=== PATIENT | female | born 1975 | race Caucasian/White ===

== ENCOUNTER 2018-08-30 08:51 | Day surgery (SDC) | payer BC ==
[~2018-08-30 08:51] MED LIST: ALBU1.25 NEB; ALBU8.5H6 INH; ALPR1TAB6 PO; ATOR40TA59 PO; BENZ-8 PO; CHOL500016 PO; DEXT20TA2 PO; FLUC100T4 PO; FLUT10.6 IH; HYDROmorphone 2 MG/ML VIAL IV PRN; LIDOCAINE 1% PF 2 ML VIAL. ID PRN; LOSA25TA54 PO; METF500T16 PO; MONT10TA49 PO; MORPHINE SULFATE 2 MG/ML VIAL. IV PRN; OMEP40CA5 PO; PROP20TA PO; RANI150T2 PO; SIMV20TA3 PO
[2018-08-30] MEDS ORDERED: AMLO10TA8 PO (09:40)
[2018-08-30] MEDS ORDERED: PRED20TA PO (09:55)
[2018-08-30] MEDS: INSULIN LISPRO 100 UNIT/ML 3ML VIAL for OP,RR ONLY. SQ PRN ×2 (10:00→14:22)
[2018-08-30] MEDS: IV RINGERS,LACTATED 1000ML 1,000 ML IV SCH ×2 (10:00→14:24)
[2018-08-30] MEDS ORDERED: SCOPOLAMINE 1.5MG PATCH. TD ONE ×2 (10:02→10:15)
[2018-08-30] MEDS ORDERED: PROPOFOL 20 ML IV ONE (10:13)
[2018-08-30] MEDS ORDERED: LIDOCAINE 2% PF 5 ML VIAL. ONE (10:13)
[2018-08-30] MEDS ORDERED: FAMOTIDINE 20 MG/2 ML VIAL ONE (10:13)
[2018-08-30] MEDS ORDERED: DEXAMETHASONE SOD PHOS 4 MG/ML VIAL ONE (10:13)
[2018-08-30] MEDS ORDERED: ONDANSETRON PF 4 MG/2 ML VIAL. ONE (10:13)
[2018-08-30] MEDS ORDERED: fentaNYL PF VIAL 100 MCG/2 ML VIAL ONE ×2 (10:15→14:10)
[2018-08-30] MEDS ORDERED: OXYMETAZOLINE 0.05% NASAL SPRAY 30ML BOTTLE. NS ONE (11:38)
[2018-08-30] MEDS ORDERED: LIDOCAINE 1%/EPI 1:100,000 20 ML VIAL. ONE (12:29)
[2018-08-30] MEDS ORDERED: GELATIN SPONGE SIZE 12-7MM SPONGE. ONE (12:32)
[2018-08-30] MEDS ORDERED: CIPROFLOXACIN 0.3% OPHTH SOLUTION 5ML BOTTLE. AS ONE (13:00)
[2018-08-30] MEDS ORDERED: SEVOFLURANE 61 TO 120 MINUTES. IH ONE (13:46)
[2018-08-30] MEDS ORDERED: MUPIROCIN 2 % NASAL OINTMENT 22GM TUBE. TP ONE (13:55)
[2018-08-30] MEDS ORDERED: fentaNYL PF VIAL 100 MCG/2 ML VIAL IV PRN (14:15)
[2018-08-30] MEDS: fentaNYL PF VIAL 100 MCG/2 ML VIAL IV PRN ×2 (14:25→14:52)
--- NOTE | 2018-08-30 14:27 | PDOC4 ---
IMMEDIATE POST OP NOTE Date: Aug 30, 2018 Pre-Op Diagnosis chronic bilateral eustachian tube dysfunction, foreign body left middle ear Post-Op Diagnosis same as above Procedure Performed bilateral nasal endoscopy with bilateral eustachian tube dilation, left myringotomy with removal of middle ear foreign body and left paper patch myringoplasty Surgeon Dr. Jazmyn Rosa Pot Operator none Anesthesiologist Dr. Joel Ramirez Anesthesia Type: General Blood Loss <5mL Specimens Obtained none Findings 1. Inflammation around torus tubaris (left greater than right) 2. T-tube within left middle ear in superior-anterior middle ear with surrounding mucoid discharge 3. Significant myringosclerosis of left tympanic membrane Complications none Operative Note #[id number] JAZMYN ROSA MD Aug 30, 2018 14:27
[2018-08-30] MEDS ORDERED: OXYC1TAB15 PO (14:39)
[2018-08-30] MEDS ORDERED: oxyCODONE/APAP 5/325 1 TAB TABLET PO ONE (14:45)
--- NOTE | 2018-08-30 14:52 | OP ---
DATE OF SURGERY: 08/30/2018 PREOPERATIVE DIAGNOSES: Chronic bilateral eustachian tube dysfunction and foreign body within the left middle ear. POSTOPERATIVE DIAGNOSES: Chronic bilateral eustachian tube dysfunction and foreign body within the left middle ear. PROCEDURE PERFORMED: Bilateral nasal endoscopy with bilateral eustachian tube dilation, left myringotomy with removal of left middle ear foreign body and left paper patch myringoplasty. SURGEON: Jazmyn Rosa MD ANESTHESIA: General endotracheal anesthesia. ANESTHESIOLOGIST: Joel Ramirez MD ESTIMATED BLOOD LOSS: Less than 5 mL. INDICATIONS FOR SURGERY: The patient is a 42-year-old female with a longstanding history of chronic bilateral eustachian tube dysfunction for which the patient has undergone multiple tubes in the past, most recently had T-tube placed in 2016 on the left side. In 2018, the patient noted recurrent ear fullness and pain and was found on examination to have the T-tube had displaced into the middle ear. The patient has been living with this for over a year and the pain is now worse in that she desires to have surgical removal of the foreign body. The decision was made for the patient to undergo the above procedure after risks, benefits, and alternatives of surgery were thoroughly discussed with the patient and informed consent was obtained. INTRAOPERATIVE FINDINGS: 1. Inflammation around the mucosa of the medial torus tubarius bilaterally, the left side greater than the right. 2. T-tube within the left middle ear located in the superior anterior middle ear with surrounding mucoid discharge. 3. Significant myringosclerosis of the tympanic membrane with a monomeric aspect of the tympanic membrane superiorly anteriorly. DESCRIPTION OF THE PROCEDURE: The patient was brought back to the operating room per Anesthesia and a laryngeal mask airway was secured in the standard fashion. Afrin-soaked pledgets were then inserted into the patient's nasal cavity and the patient was prepped and draped in standard fashion. The Afrin-soaked pledgets were removed. A 30-degree scope was used to visualize the patient's right nasal cavity and right nasopharynx. I visualized the posterior nasopharynx and the eustachian tube orifice. The patient had mild inflammatory tissue on the medial aspect of the torus tubarius. I used the Entellus low profile probe bent to the eustachian tube configuration. This was gently placed within the eustachian tube orifice. Once I was to the 2 cm jose, I placed the balloon over the probe and insufflated the balloon to 12 atmospheres of pressure for 2 minutes. The balloon was then deflated and the balloon and probe were removed from the eustachian tube orifice, which had a normal appearance at the end of the case without any obvious trauma. My attention was then taken to the left nasal cavity. In similar fashion, I used a 30-degree scope to visualize the posterior nasopharynx. On this side, the patient had significant inflammatory tissue around the medial and superior aspect of the torus tubarius. The suction Bovie electrocautery was used to remove this inflammatory tissue that was extending off of the torus tubarius taking care to not harm the mucosa surrounding the eustachian tube orifice. I then placed the Entellus low profile probe again bent to the eustachian tube configuration within the eustachian tube orifice to the 2 cm jose. The balloon was then placed over the probe and insufflated to 12 atmospheres of pressure for 2 minutes. The balloon and probe were subsequently removed with no obvious trauma to the eustachian tube. Afrin-soaked pledgets were again inserted into the nasal cavity for several minutes for hemostasis and subsequently removed. The left ear was then prepped and draped in a standard fashion. Using the ear microscope, I thoroughly irrigated the external auditory canal. I visualized the tympanic membrane, which had no obvious perforation. There was significant myringosclerosis surrounding the majority of the tympanic membrane with only slight area of monomeric tympanic membrane in the superior anterior region. Through this area of monomeric tympanic membrane I could see a blue of the T-tube that had dislodged into the middle ear. A small myringotomy was made in the superior anterior tympanic membrane overlying this T-tube. I then used a Chris pick to carefully elevate the T-tube to a location where it could be removed with an alligator forceps through a myringotomy site. After this was completed, there was a mucoid discharge noted around this tube in the middle ear and the middle ear space. This was thoroughly aspirated. The middle ear was again irrigated with saline. I did a 4 quadrant block of the external auditory canal with 1% lidocaine with 1:100,000 epinephrine for postoperative analgesia. A paper patch was then placed over the myringotomy site. Ciprofloxacin-soaked Gelfoam was placed within the medial ear and mupirocin ointment was placed in the lateral ear with a cotton ball. The patient was turned back over to Anesthesia and awoken without complication. Our sponge, needle and instrument counts were correct at the end of the case. COMPLICATIONS: None. DISPOSITION: Stable and transferred to recovery room. JAZMYN ROSA MD DR: KENDAL/ashlyn JOB#: [id number] / [id number]
[2018-08-30 15:17] VITALS: BP 119/70
== END 2018-08-30 16:00 | disposition home or self-care (01) ==
LOC: SURG 08:51
PROVIDERS: ATTEND Otolaryngology
DX: T16.2XXA Foreign body in left ear, initial encounter (principal); H69.83 Other specified disorders of Eustachian tube, bilateral; X58.XXXA Exposure to other specified factors, initial encounter; Z79.899 Other long term (current) drug therapy; Y93.89 Activity, other specified; Y92.89 Other specified places as the place of occurrence of the external cause; Y99.8 Other external cause status
CPT/HCPCS: 69205; 69436; 69610; 82962; A7015; J1100; J1956; J2001; J2405; J2704; J3010; J3490; J7120

== ENCOUNTER 2018-09-15 15:21 | Emergency (ER) | payer BC ==
[~2018-09-15] VITALS: Ht 149.9 cm; Wt 108.9 kg
[~2018-09-15 15:21] MED LIST changes: +AMLO10TA8 PO; -HYDROmorphone 2 MG/ML VIAL IV PRN; -LIDOCAINE 1% PF 2 ML VIAL. ID PRN; -MORPHINE SULFATE 2 MG/ML VIAL. IV PRN; +OXYC1TAB15 PO; +PRED20TA PO
[2018-09-15 15:37] VITALS: BP 166/90
[2018-09-15] MEDS ORDERED: ONDANSETRON ODT 4 MG TAB.RAPDIS. PO ONE (16:00)
[2018-09-15] MEDS ORDERED: LIDOCAINE 2% 20 ML VIAL. IJ ONE (16:00)
[2018-09-15] MEDS ORDERED: KETOROLAC 60 MG/2 ML VIAL. IM ONE (16:00)
--- NOTE | 2018-09-15 16:02 | PHYS DOC ---
Past Medical History Past Medical History: Asthma, Diabetes-Type II, High Cholesterol, Hypertension, Migraines Additional Past Medical Histor: ADD Past Surgical History: Appendectomy, Cholecystectomy, Hysterectomy Additional Past Surgical Histo: SPLEEN BIOPSY Smoking: Quit Greater Than 1 Year Alcohol Use: None Drug Use: None Adult General Chief Complaint Chief Complaint: HEADACHE HPI HPI Patient is a 42 year old female that presents with multiple complaints. The patient states that she has a headache in the frontal region of her head that started this morning. The patient has a history of migraines and also has symptoms that are accompanied with nausea. The patient states that she also has been having mid back pain diffusely that also started this morning when she woke up. The patient states that she has a history of back issues as well. Patient denies any light sensitivity or any other symptoms at the nausea here the patient does rate her pain as 10 out of 10 in severity at this time. The patient a recent ear surgery on the left ear as well. Review of Systems Review of Systems Constitutional: Denies fever or chills [] Eyes: Denies change in visual acuity, redness, or eye pain [] HENT: Denies nasal congestion or sore throat [] Respiratory: Denies cough or shortness of breath [] Cardiovascular: No additional information not addressed in HPI [] GI: Reports Nausea, Denies abdominal pain, vomiting, bloody stools or diarrhea [] : Denies dysuria or hematuria [] Musculoskeletal: Reports back pain Integument: Denies rash or skin lesions [] Neurologic: Reports frontal headache Endocrine: Denies polyuria or polydipsia [] Complete systems were reviewed and found to be within normal limits, except as documented in this note. Current Medications Current Medications Current Medications Medications (Trade) Dose Ordered Sig/Larry Start Time Stop Time Status Last Admin Dose Admin Diphenhydramine HCl (Benadryl) 25 mg 1X ONCE 09/15/18 17:15 09/15/18 17:16 DC 09/15/18 17:07 25 MG Ketorolac Tromethamine (Toradol Im) 30 mg 1X ONCE 09/15/18 16:00 09/15/18 16:01 DC 09/15/18 16:11 30 MG Lidocaine HCl 20 ml 1X ONCE 09/15/18 16:00 09/15/18 16:01 DC 09/15/18 16:11 20 ML Ondansetron HCl (Zofran Odt) 4 mg 1X ONCE 09/15/18 16:00 09/15/18 16:01 DC 09/15/18 16:10 4 MG Orphenadrine Citrate (Norflex) 60 mg 1X ONCE 09/15/18 17:15 09/15/18 17:16 DC 09/15/18 17:07 60 MG Promethazine HCl (Phenergan) 25 mg 1X STAT 09/15/18 16:55 09/15/18 17:03 DC 09/15/18 17:08 25 MG Allergies Allergies Allergies Coded Allergies Type Severity Reaction Last Updated Verified Penicillins Allergy Severe Hives 08/30/18 Yes clindamycin Allergy Severe swelling 08/30/18 Yes metoclopramide Allergy Severe angioedema 08/30/18 Yes prochlorperazine edisylate Allergy Severe Swelling 08/30/18 Yes prochlorperazine maleate Allergy Severe Swelling 08/30/18 Yes shellfish derived Allergy Severe hives and swelling 08/30/18 Yes Cephalexin Monohydrate Allergy Intermediate Hives 08/30/18 Yes Cephalosporins Allergy Intermediate Unknown 08/30/18 Yes Erythromycin Lactobionate Allergy Intermediate Hives 08/30/18 Yes Iodinated Contrast- Oral and IV Dye Allergy Intermediate Unknown 08/30/18 Yes Latex, Natural Rubber Allergy Intermediate hives 08/30/18 Yes oxcarbazepine Allergy Intermediate Unknown 08/30/18 Yes sulfamethoxazole Allergy Intermediate Hives 08/30/18 Yes trimethoprim Allergy Intermediate Hives 08/30/18 Yes Sulfa (Sulfonamide Antibiotics) Allergy Unknown Hives 08/30/18 Yes furosemide Adverse Reaction Intermediate Unknown 08/30/18 Yes hydrocodone Adverse Reaction Mild Nausea and Vomiting 08/30/18 Yes Physical Exam Physical Exam Constitutional: Well developed, well nourished, no acute distress, non-toxic appearance. [] HENT: Normocephalic, atraumatic, bilateral external ears normal, oropharynx moist, no oral exudates, nose normal. [] Eyes: PERRLA, EOMI, conjunctiva normal, no discharge. [] Neck: Normal range of motion, no tenderness, supple, no stridor. [] Cardiovascular:Heart rate regular rhythm, no murmur [] Lungs & Thorax: Bilateral breath sounds clear to auscultation [] Abdomen: Bowel sounds normal, soft, no tenderness, no masses, no pulsatile masses. [] Skin: Warm, dry, no erythema, no rash. [] Back: has thoracic tenderness, has CVA tenderness. [] Extremities: No tenderness, no cyanosis, no clubbing, ROM intact, no edema. [] Neurologic: Alert and oriented X 3, normal motor function, normal sensory function, no focal deficits noted. [] Psychologic: Affect normal, judgement normal, mood normal. [] Current Patient Data Vital Signs Vital Signs Date Time Temp Pulse Resp B/P (MAP) Pulse Ox O2 Delivery O2 Flow Rate FiO2 09/15/18 15:37 97.8 94 20 166/90 (115) 96 Room Air 97.8 Lab Values Laboratory Tests Test 09/15/18 16:30 Urine Collection Type Unknown Urine Color Arpita Urine Clarity Cloudy Urine pH 5.5 Urine Specific [place] >=1.030 Urine Protein Negative mg/dL (NEG-TRACE) Urine Glucose (UA) Negative mg/dL (NEG) Urine Ketones (Stick) Negative mg/dL (NEG) Urine Blood Negative (NEG) Urine Nitrite Negative (NEG) Urine Bilirubin Negative (NEG) Urine Urobilinogen Dipstick 1.0 mg/dL (0.2 mg/dL) Urine Leukocyte Esterase Negative (NEG) Urine RBC 0 /HPF (0-2) Urine WBC Rare /HPF (0-4) Urine Squamous Epithelial Cells Many /LPF Urine Bacteria Moderate /HPF (0-FEW) Urine Mucus Mod /LPF EKG EKG [] Radiology/Procedures Radiology/Procedures Placed 3 mL of 2% lidocaine on a syringe and put up patient bilateral nares for headache relief. Course & Med Decision Making Course & Med Decision Making Pertinent Labs and Imaging studies reviewed. (See chart for details) Will check a UA to make sure no UTI, Will also give IM Toradol for symptom relief and will give intranasal lidocaine to try to relieve headache. Patient is agreeable to this plan. Patient still has headache after first round of medications. UA is negative. Will give Norflex, Phenergan PO, and Benadryl. Patient is agreeable. Patient is feeling better after 2nd round of medication. Will send home with muscle relaxers. Dragon Disclaimer Dragon Disclaimer This electronic medical record was generated, in whole or in part, using a voice recognition dictation system. Departure Departure Impression: Primary Impression: Back pain Additional Impression: Headache Disposition: HOME, SELF-CARE Condition: STABLE Referrals: AZIZA HOLT MD (PCP) Patient Instructions: General Headache Without Cause Additional Instructions: Thank you for visiting [facility]. We appreciate you trusting us with your care. If any additional problems come up don't hesitate to return to visit us. Please follow up with your primary care provider so they can plan additional care if needed and know about the problem that you had. If symptoms worsen come back to the Emergency Department. Any concerning symptoms that start such as chest pain, shortness of air, weakness or numbness on one side of the body, running high fevers or any other concerning symptoms return to the ER. Scripts Orphenadrine Citrate (ORPHENADRINE CITRATE) 100 Mg Tablet.er 1 TAB PO BID PRN for MUSCLE SPASMS, #30 TAB Prov: TOLU MAXWELL APRN 09/15/18 Problem Qualifiers Primary Impression: Back pain Back pain location: thoracic back pain Chronicity: acute Back pain laterality: midline Qualified Codes: M54.6 - Pain in thoracic spine TOLU MAXWELL APRN Sep 15, 2018 16:02
[2018-09-15 16:40] LABS: BILIRUBIN,URINE NEGATIVE (NEG); CLARITY,URINE CLOUDY; COLOR,URINE AMBER; NITRITE,URINE NEGATIVE (NEG); PH,URINE 5.5; PROTEIN,URINE NEGATIVE (NEG-TRACE)
[2018-09-15 16:51] LABS: BACTERIA,URINE MODERATE /HPF (0-FEW); RBC,URINE 0 /HPF (0-2); SQUAMOUS EPITHELIAL CELL,UR MANY /LPF; WBC,URINE RARE /HPF (0-4)
[2018-09-15] MEDS ORDERED: PROMETHAZINE 12.5 MG TABLET. PO STA (16:55)
[2018-09-15] MEDS ORDERED: diphenhydrAMINE 50 MG/ML VIAL IM ONE (17:15)
[2018-09-15] MEDS ORDERED: ORPHENADRINE CITRATE 60 MG/2 ML VIAL. IM ONE (17:15)
[2018-09-15] MEDS ORDERED: ORPH100T PO (17:36)
== END 2018-09-15 17:45 | disposition home or self-care (01) ==
LOC: ER 15:21
DX: G43.909 Migraine, unspecified, not intractable, without status migrainosus (principal); M54.6 Pain in thoracic spine; R11.0 Nausea; J45.909 Unspecified asthma, uncomplicated; E11.9 Type 2 diabetes mellitus without complications; E78.00 Pure hypercholesterolemia, unspecified; I10 Essential (primary) hypertension; Z90.89 Acquired absence of other organs; Z90.49 Acquired absence of other specified parts of digestive tract; Z90.710 Acquired absence of both cervix and uterus; Z87.891 Personal history of nicotine dependence; Z88.0 Allergy status to penicillin; Z88.1 Allergy status to other antibiotic agents; Z88.8 Allergy status to other drugs, medicaments and biological substances; Z88.2 Allergy status to sulfonamides; Z91.041 Radiographic dye allergy status; Z91.040 Latex allergy status; Z88.5 Allergy status to narcotic agent; Z91.013 Allergy to seafood
CPT/HCPCS: 81001; 87086; 96372; 99284; J1200; J1885; J2001; J2360; Q0162; Q0169

== ENCOUNTER 2019-10-30 17:49 | Emergency (ER) | payer SELFPAY ==
[~2019-10-30] VITALS: Ht 149.9 cm; Wt 106.3 kg
[~2019-10-30 17:49] MED LIST changes: +OMEP40CA45 PO; -OMEP40CA5 PO; +ORPH100T PO; +SIMV20TA18 PO; -SIMV20TA3 PO
[2019-10-30 19:50] LABS: BILIRUBIN,URINE NEGATIVE (NEG); CLARITY,URINE CLEAR; COLOR,URINE YELLOW; NITRITE,URINE NEGATIVE (NEG); PH,URINE 6.5 (<5.0-8.0); PROTEIN,URINE NEGATIVE (NEG-TRACE); UROBILINOGEN,URINE 0.2 mg/dL (0.2 mg/dL)
[2019-10-30 19:57] LABS: BACTERIA,URINE MANY /HPF (0-FEW); RBC,URINE OCC /HPF (0-2); SQUAMOUS EPITHELIAL CELL,UR MOD /LPF
--- NOTE | 2019-10-30 20:12 | PHYS DOC ---
Past Medical History Past Medical History: Anxiety, Asthma, Diabetes-Type II, Hypertension Additional Past Medical Histor: ADD Past Surgical History: Appendectomy, Cholecystectomy, Hysterectomy, Tonsillectomy, Other Additional Past Surgical Histo: (R) ankle, sinus surgery x 2 Smoking Status: Never Smoker Alcohol Use: None Drug Use: None General Adult EDM: Chief Complaint: SHORTNESS OF BREATH HPI: HPI: Patient is a 44 year old female who presents with states for the last 2 weeks she has been more short of breath than usual, when she bends over she states that her lips turned blue, she feels like she is got some swelling in her throat or like something stuck in her throat, nasal drainage, currently on her second Z-Jimmy for a sinus infection, nausea. She rates her pressure in her throat that is sometimes sharp on the bilateral sides a 7 out of 10. Patient denies difficulty breathing at this time. She states she is been using her inhaler more often. She states that she can swallow and drink fluids and swallow her saliva without complication. Speaks in fairly clear sentences. Ambulatory with a steady gait. Bilateral sides of the neck are slightly tender with swollen lymph nodes bilateral sides of the neck. Her throat is pink without exudates and there is no swelling and uvula is midline. No trismus. Right eardrum appears to be reddened. Lungs are clear in upper lobes and diminished in lower lobes. Patient states that her primary care physician did check her thyroid and to do a sonogram on her thyroid and there were no acute findings. She has a history of diabetes, hypertension, asthma, appendectomy, cholecystectomy, hysterectomy, tonsils and adenoids. She states that she has quit smoking x1 month. Review of Systems: Review of Systems: Constitutional: Denies fever or chills. Feels clammy at times. [] Eyes: Denies change in visual acuity. [] HENT: nasal congestion. + sore throat. [] Respiratory: Denies cough. +shortness of breath. [] Cardiovascular: Denies chest pain or edema. [] GI: Denies abdominal pain. + nausea, denies vomiting, bloody stools or diarrhea. [] : Denies dysuria. [] Musculoskeletal: Denies back pain or joint pain. Bilateral neck pain [] Integument: Denies rash. Swelling to bilateral neck. [] Neurologic: Denies headache, focal weakness or sensory changes. [] Endocrine: Denies polyuria or polydipsia. [] Lymphatic: Denies swollen glands. [] Psychiatric: Denies depression or anxiety. [] Heart Score: Risk Factors: Risk Factors: DM, Current or recent (<one month) smoker, HTN, HLP, family history of CAD, obesity. Risk Scores: Score 0 - 3: 2.5% MACE over next 6 weeks - Discharge Home Score 4 - 6: 20.3% MACE over next 6 weeks - Admit for Clinical Observation Score 7 - 10: 72.7% MACE over next 6 weeks - Early Invasive Strategies Allergies: Allergies: Allergies Coded Allergies Type Severity Reaction Last Updated Verified Penicillins Allergy Severe Hives 08/30/18 Yes clindamycin Allergy Severe swelling 08/30/18 Yes metoclopramide Allergy Severe angioedema 08/30/18 Yes prochlorperazine edisylate Allergy Severe Swelling 08/30/18 Yes prochlorperazine maleate Allergy Severe Swelling 08/30/18 Yes shellfish derived Allergy Severe hives and swelling 08/30/18 Yes Cephalexin Monohydrate Allergy Intermediate Hives 08/30/18 Yes Cephalosporins Allergy Intermediate Unknown 08/30/18 Yes Erythromycin Lactobionate Allergy Intermediate Hives 08/30/18 Yes Iodinated Contrast Media Allergy Intermediate Unknown 08/30/18 Yes Latex, Natural Rubber Allergy Intermediate hives 08/30/18 Yes oxcarbazepine Allergy Intermediate Unknown 08/30/18 Yes sulfamethoxazole Allergy Intermediate Hives 08/30/18 Yes trimethoprim Allergy Intermediate Hives 08/30/18 Yes Sulfa (Sulfonamide Antibiotics) Allergy Unknown Hives 08/30/18 Yes furosemide Adverse Reaction Intermediate Unknown 08/30/18 Yes hydrocodone Adverse Reaction Mild Nausea and Vomiting 08/30/18 Yes Physical Exam: PE: Constitutional: Well developed, well nourished, no acute distress, non-toxic appearance. [] HENT: Normocephalic, atraumatic, bilateral external ears normal, oropharynx moist, no oral exudates, nose normal. [] Eyes: PERRLA, EOMI, conjunctiva normal, no discharge. [] Neck: Normal range of motion, no tenderness, supple, no stridor. [] Cardiovascular:Heart rate regular rhythm, no murmur [] Lungs & Thorax: Bilateral upper breath sounds clear and lower diminished to auscultation [] Abdomen: Bowel sounds normal, soft, no tenderness, no masses, no pulsatile masses. [] Skin: Warm, dry, no erythema, no rash. [] Back: No tenderness, no CVA tenderness. [] Extremities: No tenderness, no cyanosis, no clubbing, ROM intact, no edema. [] Neurologic: Alert and oriented X 3, normal motor function, normal sensory funct ion, no focal deficits noted. [] Psychologic: Affect normal, judgement normal, mood normal. [] Current Patient Data: Labs: Laboratory Tests Test 10/30/19 18:40 Urine Collection Type Unknown Urine Color Yellow Urine Clarity Clear Urine pH 6.5 (<5.0-8.0) Urine Specific [place] 1.020 (1.000-1.030) Urine Protein Negative mg/dL (NEG-TRACE) Urine Glucose (UA) Negative mg/dL (NEG) Urine Ketones (Stick) Negative mg/dL (NEG) Urine Blood Negative (NEG) Urine Nitrite Negative (NEG) Urine Bilirubin Negative (NEG) Urine Urobilinogen Dipstick 0.2 mg/dL (0.2 mg/dL) Urine Leukocyte Esterase Negative (NEG) Urine RBC Occ /HPF (0-2) Urine WBC 1-4 /HPF (0-4) Urine Squamous Epithelial Cells Mod /LPF Urine Bacteria Many /HPF (0-FEW) Urine Mucus Mod /LPF Vital Signs: Vital Signs Date Time Temp Pulse Resp B/P (MAP) Pulse Ox O2 Delivery O2 Flow Rate FiO2 10/30/19 18:40 98.1 93 18 190/92 (124) 99 Room Air 98.1 EKG: EK and reazd by dr lombardi as Sinus Rhythm and NO stemi Radiology/Procedures: Radiology/Procedures: [] Impression: [facility] [address] [place] [address] IMAGING REPORT Signed PATIENT: DENISE TSANG ACCOUNT: [id number] : 1975 LOCATION: ER AGE: 44 SEX: F EXAM STATUS: REG ER ORD. PHYSICIAN: WANDA COX APRN REASON: soa PROCEDURE: PORTABLE CHEST 1V PORTABLE CHEST 1V History: Shortness of air Comparison: October 18, 2012 Findings: Single view of the chest is submitted. There is no infiltrate, pneumothorax, or effusion. The pericardial cardiac silhouette is within normal limits in size. Impression: 1. There is no radiographic evidence of acute cardiopulmonary disease. Electronically signed by: Jennifer Pastor MD (10/30/2019 8:10 PM) [facility] DICTATED and SIGNED BY: JENNIFER PASTOR MD DATE: 10/30/19[id number] [place] [address] IMAGING REPORT Signed PATIENT: DENISE TASNG ACCOUNT: [id number] : 1975 LOCATION: ER AGE: 44 SEX: F EXAM STATUS: REG ER ORD. PHYSICIAN: WANDA COX APRN REASON: tightness, swelling PROCEDURE: NECK SOFT TISSUE NECK SOFT TISSUE History: Reason: tightness, swelling / Spl. Instructions: / History: Technique: 2 views neck soft tissues. Comparison: None. Findings: Normal appearance of the neck soft tissues. Normal appearance of the epiglottis. Normal vertebral body height and alignment. No fracture. Impression: 1. No radiographic evidence of acute pathology within the neck soft tissues. Electronically signed by: Eren Chávez DO (10/30/2019 9:00 PM) [facility] DICTATED and SIGNED BY: EREN CHÁVEZ DO DATE: 10/30/[address] [place], [place] [id number] [place] [address] IMAGING REPORT Signed PATIENT: DENISE TSANG ACCOUNT: [id number] : 1975 LOCATION: ER AGE: 44 SEX: F EXAM STATUS: REG ER ORD. PHYSICIAN: WANDA COX APRN REASON: HEAD AND FACIAL pain, foggy feeling PROCEDURE: CT HEAD AND MAXILLOFACIAL WO Exam: CT head and maxillofacial without contrast INDICATION: Head and facial pain TECHNIQUE: Sequential axial images through the head and maxillofacial were obtained without the administration of IV contrast. Comparisons: None FINDINGS: Head: No focal parenchymal lesion or hemorrhage is identified. There is no midline shift or sulcal effacement. No acute vascular territory infarction is identified. Andino-white distinction is preserved. The ventricular system is within normal limits without compression hydrocephalus. The basal cisterns are well maintained. Face: Globes and intraorbital contents are normal. The visualized portions of the paranasal sinuses and mastoid air cells are well-pneumatized. No acute fractures. IMPRESSION: 1. No acute intracranial abnormality. 2. No abnormality identified at the face. Exposure: One or more of the following in the visualized dose reduction techniques were utilized for this examination: 1. Automated exposure control 2. Adjustment of the MA and/or KV according to patient size Use of iterative of reconstructive technique Electronically signed by: Sarah De Jesus MD (10/30/2019 10:47 PM) [id number] DICTATED and SIGNED BY: SARAH DE JESUS MD DATE: 10/30/197 Course & Med Decision Making: Course & Med Decision Making Pertinent Labs and Imaging studies reviewed. (See chart for details) See HPI. X-ray showed no acute findings. Blood work shows no acute findings. Patient is stable in no distress. She was given Solu-Medrol through her IV. Patient is asking for a CT head and of her sinuses. She states she is in a constant fog and has the occasional "rotten" smell in her nose. She states years ago she had a sinus surgery done and has had problem ever since. She is concerned of why the antibiotics are not working. I have gone over this patient with Dr Lombardi and the care plan. [] Vonda Disclaimer: Vonda Disclaimer: This electronic medical record was generated, in whole or in part, using a voice recognition dictation system. Departure Departure Impression: Primary Impression: Throat irritation Additional Impression: Neck pain Disposition: 01 HOME, SELF-CARE Condition: STABLE Referrals: PHILLIP LICONA DO (PCP) Patient Instructions: Sinusitis, Sore Throat, [id number] Additional Instructions: Follow-up with your primary care provider. Take medication as prescribed and with food. Also try following up with an ENT. Drink plenty of fluids. Scripts Ondansetron (ONDANSETRON ODT) 4 Mg Tab.rapdis 1 TAB PO PRN Q6-8HRS, #16 TAB Prov: WANDA COX APRN 10/30/19 Methylprednisolone (MEDROL) 4 Mg Tab.ds.pk 1 PKG PO UD, #1 PKG Prov: WANDA COX 10/30/19 Justicifation of Admission Dx: Justifications for Admission: Justification of Admission Dx: N/A WANDA COX COURTROOM DEPUTY OR CALENDAR CLERK Oct 30, 2019 20:12
[2019-10-30] MEDS ORDERED: methylPREDNISolone SOD SUCC PF 125 MG/2 ML VIAL. IV ONE (20:15)
[2019-10-30] MEDS ORDERED: ONDANSETRON PF 4 MG/2 ML VIAL. IVP ONE (20:15)
--- NOTE | 2019-10-30 21:03 | RAD ---
NECK SOFT TISSUE History: Reason: tightness, swelling / Spl. Instructions: / History: Technique: 2 views neck soft tissues. Comparison: None. Findings: Normal appearance of the neck soft tissues. Normal appearance of the epiglottis. Normal vertebral body height and alignment. No fracture. Impression: 1. No radiographic evidence of acute pathology within the neck soft tissues. Electronically signed by: Eren Chávez DO (10/30/2019 9:00 PM) [facility]
[2019-10-30 21:30] LABS: BASO % 1 % (0-3); EOS # 0.1 x10^3/uL (0.0-0.7); EOS % 2 % (0-3); HEMATOCRIT 43.5 % (36.0-47.0); HEMOGLOBIN 15.2 g/dL (12.0-15.5); LYMPH # 3.8 x10^3/uL (1.0-4.8); LYMPH % 43 % (24-48); MEAN CORPUSCULAR HEMOGLOBIN 31 pg (25-35); MEAN CORPUSCULAR HGB CONC 35 g/dL (31-37); MEAN CORPUSCULAR VOLUME 90 fL (79-100); MONO # 0.5 x10^3/uL (0.0-1.1); MONO % 6 % (0-9); NEUT # 4.4 x10^3/uL (1.8-7.7); NEUT % 49 % (31-73); PLATELET COUNT 199 x10^3/uL (140-400); RED BLOOD COUNT 4.86 x10^6/uL (3.50-5.40); RED CELL DISTRIBUTION WIDTH 13.2 % (11.5-14.5); WHITE BLOOD COUNT 8.8 x10^3/uL (4.0-11.0)
[2019-10-30 21:38] LABS: CALCIUM 9.1 mg/dL (8.5-10.1); CREATININE 0.9 mg/dL (0.6-1.0); GFR 68.7; POTASSIUM 4.2 mmol/L (3.5-5.1)
[2019-10-30 21:44] LABS: ALBUMIN 3.8 g/dL (3.4-5.0); ALBUMIN/GLOBULIN RATIO 1.3 (1.0-1.7); TOTAL BILIRUBIN 0.4 mg/dL (0.2-1.0); TOTAL PROTEIN 6.7 g/dL (6.4-8.2)
[2019-10-30] MEDS ORDERED: ONDA4TAB12 PO (22:01)
[2019-10-30] MEDS ORDERED: METH4TAB2 PO (22:01)
--- NOTE | 2019-10-30 22:50 | RAD ---
Exam: CT head and maxillofacial without contrast INDICATION: Head and facial pain TECHNIQUE: Sequential axial images through the head and maxillofacial were obtained without the administration of IV contrast. Comparisons: None FINDINGS: Head: No focal parenchymal lesion or hemorrhage is identified. There is no midline shift or sulcal effacement. No acute vascular territory infarction is identified. Andino-white distinction is preserved. The ventricular system is within normal limits without compression hydrocephalus. The basal cisterns are well maintained. Face: Globes and intraorbital contents are normal. The visualized portions of the paranasal sinuses and mastoid air cells are well-pneumatized. No acute fractures. IMPRESSION: 1. No acute intracranial abnormality. 2. No abnormality identified at the face. Exposure: One or more of the following in the visualized dose reduction techniques were utilized for this examination: 1. Automated exposure control 2. Adjustment of the MA and/or KV according to patient size Use of iterative of reconstructive technique Electronically signed by: Sarah Reeves MD (10/30/2019 10:47 PM) [id number]
[2019-10-30 23:00] VITALS: BP 159/83
--- NOTE | 2019-10-31 05:22 | EKG ---
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
== END 2019-10-30 23:10 | disposition home or self-care (01) ==
LOC: ER 17:49
DX: J39.2 Other diseases of pharynx (principal); M54.2 Cervicalgia; R06.02 Shortness of breath; R51 Headache; R11.0 Nausea; J45.909 Unspecified asthma, uncomplicated; E11.9 Type 2 diabetes mellitus without complications; I10 Essential (primary) hypertension; Z88.0 Allergy status to penicillin; Z88.1 Allergy status to other antibiotic agents; Z91.041 Radiographic dye allergy status; Z88.8 Allergy status to other drugs, medicaments and biological substances; Z91.013 Allergy to seafood; Z91.040 Latex allergy status; Z88.2 Allergy status to sulfonamides; Z88.5 Allergy status to narcotic agent
CPT/HCPCS: 36415; 70360; 70450; 70486; 71045; 80053; 81001; 83880; 84484; 85025; 87086; 93005; 96374; 96375; 99285; J2405; J2930

== ENCOUNTER 2019-11-10 20:06 | Emergency (ER) | payer SELFPAY ==
[~2019-11-10] VITALS: Ht 149.9 cm; Wt 110.0 kg
[~2019-11-10 20:06] MED LIST changes: +METH4TAB2 PO; +ONDA4TAB12 PO
[2019-11-10] MEDS ORDERED: diphenhydrAMINE 50 MG/ML VIAL IVP ONE (21:00)
--- NOTE | 2019-11-10 21:07 | PHYS DOC ---
Past Medical History Past Medical History: Anxiety, Asthma, Diabetes-Type II, Hypertension Additional Past Medical Histor: ADD Past Surgical History: Appendectomy, Cholecystectomy, Hysterectomy, Tonsillectomy, Other Additional Past Surgical Histo: (R) ankle, sinus surgery x 2 Smoking Status: Former Smoker Alcohol Use: None Drug Use: None General Adult EDM: Chief Complaint: HEADACHE HPI: HPI: Patient is a 44 year old female with past medical history of migraines, hypertension, ADHD, anxiety presents with a chief complaint of headache. Patient states sudden onset headache approximately 2 hours prior to arrival. Patient states started occipital region on the left and radiated to the frontal region. Patient states her pain is now primary located on the left parietal r egion as well as behind the eyes. Patient states she has associated nausea is vomited multiple times. Patient states also states she has some visual changes. On exam patient is alert and oriented x4. She has no focal neurological deficits. She arrived by private vehicle ambulated into the ER. Review of Systems: Review of Systems: Constitutional: Denies fever or chills. [] Eyes: Positive visual changes HENT: Denies nasal congestion or sore throat. [] Respiratory: Denies cough or shortness of breath. [] Cardiovascular: Denies chest pain or edema. [] GI: Denies abdominal pain,, bloody stools or diarrhea. [Positive nausea and vomiting] : Denies dysuria. [] Musculoskeletal: Denies back pain or joint pain. [] Integument: Denies rash. [] Neurologic: Denies focal weakness or sensory changes. [Positive headache] Endocrine: Denies polyuria or polydipsia. [] Lymphatic: Denies swollen glands. [] Psychiatric: Denies depression or anxiety. [] Heart Score: Risk Factors: Risk Factors: DM, Current or recent (<one month) smoker, HTN, HLP, family history of CAD, obesity. Risk Scores: Score 0 - 3: 2.5% MACE over next 6 weeks - Discharge Home Score 4 - 6: 20.3% MACE over next 6 weeks - Admit for Clinical Observation Score 7 - 10: 72.7% MACE over next 6 weeks - Early Invasive Strategies Current Medications: Current Medications Medications (Trade) Dose Ordered Sig/Larry Start Time Stop Time Status Last Admin Dose Admin Diphenhydramine HCl (Benadryl) 50 mg 1X ONCE 11/10/19 21:00 9/6/20 21:01 UNV Ketorolac Tromethamine (Toradol 30mg Vial) 30 mg 1X ONCE 11/10/19 21:00 11/10/19 21:01 UNV Allergies: Allergies: Allergies Coded Allergies Type Severity Reaction Last Updated Verified Penicillins Allergy Severe Hives 08/30/18 Yes clindamycin Allergy Severe swelling 08/30/18 Yes metoclopramide Allergy Severe angioedema 08/30/18 Yes prochlorperazine edisylate Allergy Severe Swelling 08/30/18 Yes prochlorperazine maleate Allergy Severe Swelling 08/30/18 Yes shellfish derived Allergy Severe hives and swelling 08/30/18 Yes Cephalexin Monohydrate Allergy Intermediate Hives 08/30/18 Yes Cephalosporins Allergy Intermediate Unknown 08/30/18 Yes Erythromycin Lactobionate Allergy Intermediate Hives 08/30/18 Yes Iodinated Contrast Media Allergy Intermediate Unknown 08/30/18 Yes Latex, Natural Rubber Allergy Intermediate hives 08/30/18 Yes oxcarbazepine Allergy Intermediate Unknown 08/30/18 Yes sulfamethoxazole Allergy Intermediate Hives 08/30/18 Yes trimethoprim Allergy Intermediate Hives 08/30/18 Yes Sulfa (Sulfonamide Antibiotics) Allergy Unknown Hives 08/30/18 Yes furosemide Adverse Reaction Intermediate Unknown 08/30/18 Yes hydrocodone Adverse Reaction Mild Nausea and Vomiting 08/30/18 Yes Physical Exam: PE: Constitutional: Well developed, well nourished, no acute distress, non-toxic appearance. [] HENT: Normocephalic, atraumatic, bilateral external ears normal, oropharynx moist, no oral exudates, nose normal. [] Eyes: PERRLA, EOMI, conjunctiva normal, no discharge. [] Neck: Normal range of motion, no tenderness, supple, no stridor. [] Cardiovascular:Heart rate regular rhythm, no murmur [] Lungs & Thorax: Bilateral breath sounds clear to auscultation [] Abdomen: Bowel sounds normal, soft, no tenderness, no masses, no pulsatile masses. [] Skin: Warm, dry, no erythema, no rash. [] Back: No tenderness, no CVA tenderness. [] Extremities: No tenderness, no cyanosis, no clubbing, ROM intact, no edema. [] Neurologic: Alert and oriented X 3, normal motor function, normal sensory function, no focal deficits noted. [] Psychologic: Affect normal, judgement normal, mood normal. [] Current Patient Data: Vital Signs: Vital Signs Date Time Temp Pulse Resp B/P (MAP) Pulse Ox O2 Delivery O2 Flow Rate FiO2 11/10/19 20:30 98.2 20 172/118 (136) 100 Room Air 98.2 EKG: EKG: [] Radiology/Procedures: Radiology/Procedures: [] Impression: CT Head W/O Contrast: History: Reason: headache / Spl. Instructions: / History: Comparison: none Axial images were obtained without contrast. The donovan and white matter appears normal and symmetrical for the patients age. There is no mass effect, extraaxial fluid collections or hydrocephalus. There is no gross bleed. There is no focal loss of donovan-white matter distinction to suggest acute ischemia, i.e. stroke. Impression: No acute findings. End impression CT C-Spine without contrast: Clinical History: Reason: headache / Spl. Instructions: / History: Technique: Axial helical images of the cervical spine were obtained without contrast, axial coronal and sagittal reconstruction was performed. Findings: There is no loss of vertebral body stature. There is no prevertebral soft tissue swelling. The vertebral bodies are well aligned. The C1-C2 relationship is normal. The visualized osseous structures appear normal. Impression: No acute findings. Clinical correlation suggested. Course & Med Decision Making: Course & Med Decision Making Pertinent Labs and Imaging studies reviewed. (See chart for details) [] Patient was evaluated for chief complaint. Work-up consisted of radiologic i maging. Results reviewed and discussed with patient. No acute intracranial abnormalities. Patient's treatment included Toradol Benadryl morphine and Zofran. Patient's pain improved post treatment. Patient discharged home with instruction to follow-up with a primary care physician. Prescription Zofran and Percocet prescribed. Dragon Disclaimer: Dragon Disclaimer: This electronic medical record was generated, in whole or in part, using a voice recognition dictation system. Departure Departure Impression: Primary Impression: Headache Disposition: ADMITTED INPATIENT Condition: STABLE Referrals: PHILLIP LICONA DO (PCP) Patient Instructions: Migraine Headache Scripts Ondansetron Hcl (ZOFRAN) 4 Mg Tablet 1 TAB PO Q6HRS, #10 TAB Prov: NORA FAY DO 11/10/19 Oxycodone HCl/Acetaminophen (Percocet 5-325 mg Tablet) 1 Each Tablet 1 TAB PO PRN TID PRN for PAIN MDD 3 Tablet(s) for 5 Days, #15 TAB 0 Refills Prov: NORA FAY DO 11/10/19 Justicifation of Admission Dx: Justifications for Admission: Justification of Admission Dx: N/A NORA FAY DO Nov 10, 2019 21:06
[2019-11-10] MEDS: KETOROLAC 30 MG/ML VIAL. IVP ONE ×2 (21:29→21:45)
--- NOTE | 2019-11-10 22:22 | RAD ---
CT Head W/O Contrast: History: Reason: headache / Spl. Instructions: / History: Comparison: none Axial images were obtained without contrast. The donovan and white matter appears normal and symmetrical for the patients age. There is no mass effect, extraaxial fluid collections or hydrocephalus. There is no gross bleed. There is no focal loss of donovan-white matter distinction to suggest acute ischemia, i.e. stroke. Impression: No acute findings. End impression CT C-Spine without contrast: Clinical History: Reason: headache / Spl. Instructions: / History: Technique: Axial helical images of the cervical spine were obtained without contrast, axial coronal and sagittal reconstruction was performed. Findings: There is no loss of vertebral body stature. There is no prevertebral soft tissue swelling. The vertebral bodies are well aligned. The C1-C2 relationship is normal. The visualized osseous structures appear normal. Impression: No acute findings. Clinical correlation suggested. PQRS Compliance Statement: One or more of the following individualized dose reduction techniques were utilized for this examination: 1. Automated exposure control 2. Adjustment of the mA and/or kV according to patient size 3. Use of iterative reconstruction technique Electronically signed by: Marlon Ford III, MD (11/10/2019 10:19 PM) [facility]
[2019-11-10] MEDS ORDERED: MORPHINE SULFATE 2 MG/ML VIAL. IV ONE (22:45)
[2019-11-10] MEDS ORDERED: ONDANSETRON PF 4 MG/2 ML VIAL. IVP ONE (23:15)
[2019-11-10] MEDS ORDERED: ONDA4TAB7 PO (23:37)
[2019-11-10] MEDS ORDERED: OXYC-325 PO (23:37)
[2019-11-10 23:45] VITALS: BP 178/89
== END 2019-11-10 23:47 | disposition other institution (70) ==
LOC: ER 20:06
DX: R51 Headache (principal); R11.2 Nausea with vomiting, unspecified; F41.9 Anxiety disorder, unspecified; J45.909 Unspecified asthma, uncomplicated; E11.9 Type 2 diabetes mellitus without complications; I10 Essential (primary) hypertension; Z90.89 Acquired absence of other organs; Z90.49 Acquired absence of other specified parts of digestive tract; Z90.710 Acquired absence of both cervix and uterus; Z87.891 Personal history of nicotine dependence; Z98.890 Other specified postprocedural states; Z88.0 Allergy status to penicillin; Z88.1 Allergy status to other antibiotic agents; Z91.013 Allergy to seafood; Z88.8 Allergy status to other drugs, medicaments and biological substances; Z88.6 Allergy status to analgesic agent; Z88.5 Allergy status to narcotic agent; Z88.2 Allergy status to sulfonamides; Z91.040 Latex allergy status; Z91.041 Radiographic dye allergy status
CPT/HCPCS: 70450; 72125; 96374; 96375; 99285; J1200; J1885; J2270; J2405

== ENCOUNTER 2020-03-10 16:20 | Emergency (ER) | payer SELFPAY ==
[~2020-03-10] VITALS: Ht 149.9 cm; Wt 108.0 kg
[~2020-03-10 16:20] MED LIST changes: +AMLO-187 PO; -AMLO10TA8 PO; -OMEP40CA45 PO; +OMEP40CA7 PO; +ONDA4TAB7 PO; +OXYC-325 PO
--- NOTE | 2020-03-10 17:16 | ED.ADGEN ---
Past Medical History Past Medical History: Anxiety, Asthma, Diabetes-Type II, Hypertension Additional Past Medical Histor: ADD Past Surgical History: Appendectomy, Cholecystectomy, Hysterectomy, Tonsillectomy, Other Additional Past Surgical Histo: (R) ankle, sinus surgery x 2 Smoking Status: Former Smoker Alcohol Use: None Drug Use: None General Adult EDM: Chief Complaint: CHEST PAIN HPI: HPI: Patient is a 44 year old female who presents to the emergency department with complaints of intermittent left-sided chest pain and shortness of breath for the last week. She also reports having intermittent episodes of her hands turning bright red, white, or blue in coloration for the last 2 weeks. She states that her hands either feel extremely hot or extremely cold when this happens. She has had similar problems in both of her feet in the past. Patient denies any Covid exposure. She denies any cough, nausea, vomiting, diarrhea, abdominal pain, or fever. States that the pain on left side of her chest is reproducible with palpation of her upper left chest. She denies any injury or trauma. Patient states she has type 2 diabetes but does not take any of her medications because she does not have insurance. She currently denies any shortness of breath. She currently rates her pain a 9 out of 10 on the pain scale, she denies any alleviating factors, pain is worse with palpation and inspiration. Review of Systems: Review of Systems: Complete ROS is negative unless otherwise noted in HPI. Current Medications: Current Medications Medications (Trade) Dose Ordered Sig/Larry Start Time Stop Time Status Last Admin Dose Admin Ketorolac Tromethamine (Toradol 30mg Vial) 30 mg 1X ONCE 03/10/20 18:15 03/10/20 18:16 DC 03/10/20 18:32 30 MG Morphine Sulfate (Morphine Sulfate) 4 mg 1X ONCE 03/10/20 17:30 03/10/20 17:31 DC 03/10/20 17:46 4 MG Ondansetron HCl (Zofran) 4 mg 1X ONCE 03/10/20 17:30 03/10/20 17:31 DC 03/10/20 17:45 4 MG Sodium Chloride 1,000 ml @ 1,000 mls/hr 1X ONCE 03/10/20 17:30 03/10/20 18:29 DC 03/10/20 17:45 1,000 MLS/HR Allergies: Allergies: Allergies Coded Allergies Type Severity Reaction Last Updated Verified Penicillins Allergy Severe Hives 08/30/18 Yes clindamycin Allergy Severe swelling 08/30/18 Yes metoclopramide Allergy Severe angioedema 08/30/18 Yes prochlorperazine edisylate Allergy Severe Swelling 08/30/18 Yes prochlorperazine maleate Allergy Severe Swelling 08/30/18 Yes shellfish derived Allergy Severe hives and swelling 08/30/18 Yes Cephalexin Monohydrate Allergy Intermediate Hives 08/30/18 Yes Cephalosporins Allergy Intermediate Unknown 08/30/18 Yes Erythromycin Lactobionate Allergy Intermediate Hives 08/30/18 Yes Iodinated Contrast Media Allergy Intermediate Unknown 08/30/18 Yes Latex, Natural Rubber Allergy Intermediate hives 08/30/18 Yes oxcarbazepine Allergy Intermediate Unknown 08/30/18 Yes sulfamethoxazole Allergy Intermediate Hives 08/30/18 Yes trimethoprim Allergy Intermediate Hives 08/30/18 Yes Sulfa (Sulfonamide Antibiotics) Allergy Unknown Hives 08/30/18 Yes furosemide Adverse Reaction Intermediate Unknown 08/30/18 Yes hydrocodone Adverse Reaction Mild Nausea and Vomiting 08/30/18 Yes Physical Exam: PE: See Above Constitutional: Well developed, well nourished, no acute distress, non-toxic appearance, morbidly obese. [] HENT: Normocephalic, atraumatic, bilateral external ears normal, nose normal. [] Eyes: PERRLA, EOMI, conjunctiva normal, no discharge. [] Neck: Normal range of motion, no stridor. [] Cardiovascular:Heart rate regular rhythm Lungs & Thorax: Respirations even and unlabored, no retractions, no respiratory distress; left chest tenderness to palpation without subcutaneous emphysema Abdomen: soft, no tenderness Skin: Warm, dry, no erythema, no rash. [] Extremities: No cyanosis, ROM intact, no edema. [] Neurologic: Alert and oriented X 3, no focal deficits noted. [] Psychologic: Affect normal, judgement normal, mood normal. [] Current Patient Data: Labs: Laboratory Tests Test 03/10/20 17:15 White Blood Count 11.0 x10^3/uL (4.0-11.0) Red Blood Count 4.82 x10^6/uL (3.50-5.40) Hemoglobin 15.1 g/dL (12.0-15.5) Hematocrit 43.6 % (36.0-47.0) Mean Corpuscular Volume 90 fL (79-100) Mean Corpuscular Hemoglobin 31 pg (25-35) Mean Corpuscular Hemoglobin Concent 35 g/dL (31-37) Red Cell Distribution Width 12.5 % (11.5-14.5) Platelet Count 179 x10^3/uL (140-400) Neutrophils (%) (Auto) 53 % (31-73) Lymphocytes (%) (Auto) 37 % (24-48) Monocytes (%) (Auto) 8 % (0-9) Eosinophils (%) (Auto) 1 % (0-3) Basophils (%) (Auto) 1 % (0-3) Neutrophils # (Auto) 5.9 x10^3/uL (1.8-7.7) Lymphocytes # (Auto) 4.0 x10^3/uL (1.0-4.8) Monocytes # (Auto) 0.9 x10^3/uL (0.0-1.1) Eosinophils # (Auto) 0.1 x10^3/uL (0.0-0.7) Basophils # (Auto) 0.1 x10^3/uL (0.0-0.2) D-Dimer (Thuy) 0.34 ug/mlFEU (0.00-0.50) Sodium Level 138 mmol/L (136-145) Potassium Level 4.6 mmol/L (3.5-5.1) Chloride Level 103 mmol/L (98-107) Carbon Dioxide Level 29 mmol/L (21-32) Anion Gap 6 (6-14) Blood Urea Nitrogen 15 mg/dL (7-20) Creatinine 1.0 mg/dL (0.6-1.0) Estimated GFR (Cockcroft-Gault) 60.8 BUN/Creatinine Ratio 15 (6-20) Glucose Level 100 mg/dL (70-99) H Calcium Level 9.3 mg/dL (8.5-10.1) Magnesium Level 1.8 mg/dL (1.8-2.4) Total Bilirubin 0.4 mg/dL (0.2-1.0) Aspartate Amino Transferase (AST) 13 U/L (15-37) L Alanine Aminotransferase (ALT) 25 U/L (14-59) Alkaline Phosphatase 77 U/L (46-116) Creatine Kinase 69 U/L (26-192) Creatine Kinase MB (Mass) 1.1 ng/mL (0.0-3.6) Creatine Kinase MB Relative Index % (0-4) Troponin I Quantitative < 0.017 ng/mL (0.000-0.055) YE-Tbo-R-Type Natriuretic Peptide 109 pg/mL (0-124) Total Protein 6.9 g/dL (6.4-8.2) Albumin 3.9 g/dL (3.4-5.0) Albumin/Globulin Ratio 1.3 (1.0-1.7) Lipase 127 U/L (73-393) Laboratory Tests 03/10/20 17:15 Laboratory Tests 03/10/20 17:15 Vital Signs: Vital Signs Date Time Temp Pulse Resp B/P (MAP) Pulse Ox O2 Delivery O2 Flow Rate FiO2 03/10/20 16:33 98.1 95 22 155/82 (106) 96 Room Air 98.1 EKG: EK-sinus rhythm, rate 83, no STEMI, read by Dr. Hanson [] Heart Score: HEART Score for Chest Pain: HEART Score for Chest Pain Response (Comments) Value History Slighlty/Non-Suspicious 0 ECG Nonspecific Repolarizatio 1 Age < 45 0 Risk Factors >3 Risk Factors or Hx CAD 2 Troponin < Normal Limit 0 Total 3 Risk Factors: Risk Factors: DM, Current or recent (<one month) smoker, HTN, HLP, family history of CAD, obesity. Risk Scores: Score 0 - 3: 2.5% MACE over next 6 weeks - Discharge Home Score 4 - 6: 20.3% MACE over next 6 weeks - Admit for Clinical Observation Score 7 - 10: 72.7% MACE over next 6 weeks - Early Invasive Strategies Radiology/Procedures: Radiology/Procedures: PROCEDURE: CT NECK CHEST WO CONTRAST CT CT NECK CHEST WO CONTRAST INDICATION: Reason: enlarged cervical lymphnodes and left axilla mass / Spl. Instructions: / History: . COMPARISON STUDY: None. TECHNIQUE: Unenhanced axial images were obtained through neck, lungs, and upper abdomen. Coronal and sagittal multiplanar reconstructions were also obtained. PQRS compliance statement: One or more of the following individualized dose reduction techniques were utilized for this examination: 1. Automated exposure control 2. Adjustment of the mA and/or kV according to patient size 3. Use of iterative reconstruction technique FINDINGS: No cervical mass or lymphadenopathy. The parotid, submandibular, and thyroid glands are normal. The unenhanced vessels of the neck are normal. The visualized aerodigestive tract is normal. The visualized posterior fossa and brain is normal. The visualized orbits and paranasal sinuses are normal. No pulmonary mass or consolidation. Normal central airways. The pleural spaces are normal. The visualized thyroid gland is normal in size and attenuation. No axillary or supraclavicular lymphadenopathy. No mediastinal, hilar or retrocrural lymphadenopathy. Calcified mediastinal and right hilar lymph nodes consistent with remote granulomatous disease The heart and pericardium are within normal limits. The great vessels of the thorax are normal. Cholecystectomy. The visualized skeletal structures and soft tissues of the chest wall are within normal limits. IMPRESSION: No mass or pathologically enlarged by CT criteria lymphadenopathy. [] Course & Med Decision Making: Course & Med Decision Making Pertinent Labs and Imaging studies reviewed. (See chart for details) 44-year-old female presents emergency department with intermittent shortness of breath, left-sided chest pain, and color/temperature changes in her hands for the last week. CBC, CMP, D-dimer, cardiac enzymes are all within normal limits. CT of patient's chest and neck are negative for any mass or acute findings. Most likely the patient is suffering from Raynaud's phenomenon, plan to check a 3-hour troponin if troponin remains negative we will diagnosed patient with acute costochondritis can provide patient with information about Raynaud's. Report to Dr. Chavez at 1850 who will follow up on 3-hour troponin and make final disposition. [] Dragon Disclaimer: Vonda Disclaimer: This electronic medical record was generated, in whole or in part, using a voice recognition dictation system. Departure Departure Impression: Primary Impression: Costochondritis, acute Disposition: 01 DC HOME SELF CARE/HOMELESS Condition: STABLE Referrals: PHILLIP LICONA DO (PCP) Patient Instructions: Costochondritis, [id number], Raynaud's Syndrome FAUSTO REHMAN APRN Mar 10, 2020 17:16
[2020-03-10] MEDS ORDERED: MORPHINE SULFATE 4 MG/ML VIAL. IV ONE (17:30)
[2020-03-10] MEDS ORDERED: IV NORMAL SALINE 1000ML BAG 1,000 ML IV ONE (17:30)
[2020-03-10] MEDS ORDERED: ONDANSETRON PF 4 MG/2 ML VIAL. IV ONE (17:30)
[2020-03-10 17:32] LABS: BASO # 0.1 x10^3/uL (0.0-0.2); BASO % 1 % (0-3); EOS # 0.1 x10^3/uL (0.0-0.7); EOS % 1 % (0-3); HEMATOCRIT 43.6 % (36.0-47.0); HEMOGLOBIN 15.1 g/dL (12.0-15.5); LYMPH % 37 % (24-48); MEAN CORPUSCULAR HEMOGLOBIN 31 pg (25-35); MEAN CORPUSCULAR HGB CONC 35 g/dL (31-37); MEAN CORPUSCULAR VOLUME 90 fL (79-100); MONO # 0.9 x10^3/uL (0.0-1.1); MONO % 8 % (0-9); NEUT # 5.9 x10^3/uL (1.8-7.7); NEUT % 53 % (31-73); PLATELET COUNT 179 x10^3/uL (140-400); RED BLOOD COUNT 4.82 x10^6/uL (3.50-5.40); RED CELL DISTRIBUTION WIDTH 12.5 % (11.5-14.5)
[2020-03-10 17:48] LABS: CALCIUM 9.3 mg/dL (8.5-10.1); GFR 60.8; POTASSIUM 4.6 mmol/L (3.5-5.1)
[2020-03-10 17:54] LABS: ALBUMIN 3.9 g/dL (3.4-5.0); ALBUMIN/GLOBULIN RATIO 1.3 (1.0-1.7); MAGNESIUM 1.8 mg/dL (1.8-2.4); TOTAL BILIRUBIN 0.4 mg/dL (0.2-1.0); TOTAL PROTEIN 6.9 g/dL (6.4-8.2)
--- NOTE | 2020-03-10 17:54 | RAD ---
CT CT NECK CHEST WO CONTRAST INDICATION: Reason: enlarged cervical lymphnodes and left axilla mass / Spl. Instructions: / History : . COMPARISON STUDY: None. TECHNIQUE: Unenhanced axial images were obtained through neck, lungs, and upper abdomen. Coronal and sagittal multiplanar reconstructions were also obtained. PQRS compliance statement: One or more of the following individualized dose reduction techniques were utilized for this examinat ion: 1. Automated exposure control 2. Adjustment of the mA and/or kV according to patient size 3. Use of iterative reconstruction technique FINDINGS: No cervical mass or lymphadenopathy. The parotid, submandibular, and thyroid glands are normal. The u nenhanced vessels of the neck are normal. The visualized aerodigestive tract is normal. The visualized posterior fossa and brain is normal. The visualized orbits and paranasal sinuses are n ormal. No pulmonary mass or consolidation. Normal central airways. The pleural spaces are normal. The visualized thyroid gland is normal in size and attenuation. No axillary or supraclavicular lympha denopathy. No mediastinal, hilar or retrocrural lymphadenopathy. Calcified mediastinal and right nicole r lymph nodes consistent with remote granulomatous disease The heart and pericardium are within denise l limits. The great vessels of the thorax are normal. Cholecystectomy. The visualized skeletal structures and soft tissues of the chest wall are within normal limits. IMPRESSION: No mass or pathologically enlarged by CT criteria lymphadenopathy. Electronically signed by: Inderjit Craig MD (03/10/2020 5:52 PM) [facility]
[2020-03-10 18:15] LABS: CREATINE KINASE 69 U/L (26-192)
[2020-03-10] MEDS ORDERED: KETOROLAC 30 MG/ML VIAL. IV ONE (18:15)
--- NOTE | 2020-03-10 18:17 | EKG ---
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
[2020-03-10 20:15] VITALS: BP 136/64
[2020-03-10] MEDS ORDERED: OXYC-325 PO (20:46)
[2020-07-18] MEDS ORDERED: CIPR500T94 PO (03:08)
[2020-07-18] MEDS ORDERED: DOXY100C2 PO (03:08)
[2020-07-18] MEDS ORDERED: CARV25TA PO (03:08)
[2020-07-21] MEDS ORDERED: DOXY100C2 PO (13:14)
== END 2020-03-10 21:00 | disposition home or self-care (01) ==
LOC: ER 16:20
DX: M94.0 Chondrocostal junction syndrome [Tietze] (principal); E11.9 Type 2 diabetes mellitus without complications; I10 Essential (primary) hypertension; J45.909 Unspecified asthma, uncomplicated; F41.9 Anxiety disorder, unspecified; Z87.891 Personal history of nicotine dependence; Z88.0 Allergy status to penicillin; Z88.1 Allergy status to other antibiotic agents; Z88.2 Allergy status to sulfonamides; Z91.040 Latex allergy status; Z91.041 Radiographic dye allergy status; Z88.5 Allergy status to narcotic agent; Z91.013 Allergy to seafood; Z88.8 Allergy status to other drugs, medicaments and biological substances
CPT/HCPCS: 36415; 70490; 71250; 80053; 82553; 83690; 83735; 83880; 84484; 85025; 85379; 93005; 96361; 96374; 96375; 99285; J1885; J2270; J2405; J7030

== ENCOUNTER 2020-06-21 12:14 | Emergency (ER) | payer SELFPAY ==
[~2020-06-21] VITALS: Ht 149.9 cm; Wt 115.0 kg
[~2020-06-21 12:14] MED LIST changes: +OMEP40CA45 PO; -OMEP40CA7 PO
[2020-06-21] MEDS ORDERED: ONDANSETRON PF 4 MG/2 ML VIAL. IV ONE (13:00)
[2020-06-21] MEDS ORDERED: IV NORMAL SALINE 1000ML BAG 1,000 ML IV ONE (13:00)
[2020-06-21] MEDS ORDERED: diphenhydrAMINE 50 MG/ML VIAL IVP ONE (13:00)
[2020-06-21] MEDS ORDERED: DEXAMETHASONE SOD PHOS 20 MG/5 ML VIAL. IV ONE (13:00)
[2020-06-21] MEDS ORDERED: KETOROLAC 30 MG/ML VIAL. IV ONE (13:45)
[2020-06-21] MEDS ORDERED: ORPHENADRINE CITRATE 60 MG/2 ML VIAL. IM ONE (15:00)
[2020-06-21 16:08] VITALS: BP 133/89
--- NOTE | 2020-06-21 16:13 | ED.ADGEN ---
Past Medical History Past Medical History: Anxiety, Asthma, Diabetes-Type II, High Cholesterol, Hypertension, Migraines Additional Past Medical Histor: ADD Past Surgical History: Appendectomy, Cholecystectomy, Hysterectomy, Tonsillectomy, Other Additional Past Surgical Histo: (R) ankle, sinus surgery x 2 Smoking Status: Former Smoker Alcohol Use: None Drug Use: None General Adult EDM: Chief Complaint: HEADACHE HPI: HPI: Patient is a 44 year old female who presents emergency department via POV with complaints of a headache for about a week. Patient states she has been suffering from severe sinus pressure, congestion, and a sinus infection for about the last week and a half. She states she saw her primary care doctor who prescribed her Levaquin. Patient reports she was taking a total of 6 doses of medication but she continues to have a headache. She states that a one of the headaches is behind her left eye, but she also has a second headache in the back of her head that radiates from her neck. She denies any numbness, tingling, weakness, photosensitivity, loss of vision, body aches, fatigue, cough, shortness of breath, chest pain, or palpitations. Patient states that she has felt nauseous at home but denies vomiting. She currently rates her pain 7 out of 10 on the pain scale describes it as a constant dull throb. Review of Systems: Review of Systems: Complete ROS is negative unless otherwise noted in HPI. Current Medications: Current Medications Medications (Trade) Dose Ordered Sig/Larry Start Time Stop Time Status Last Admin Dose Admin Dexamethasone Sodium Phosphate (Decadron) 10 mg 1X ONCE 06/21/20 13:00 06/21/20 13:01 DC 06/21/20 13:02 10 MG Diphenhydramine HCl (Benadryl) 25 mg 1X ONCE 06/21/20 13:00 06/21/20 13:01 DC 06/21/20 13:03 25 MG Ketorolac Tromethamine (Toradol 30mg Vial) 30 mg 1X ONCE 06/21/20 13:45 06/21/20 13:48 DC 06/21/20 13:46 30 MG Ondansetron HCl (Zofran) 4 mg 1X ONCE 06/21/20 13:00 06/21/20 13:01 DC 06/21/20 13:02 4 MG Orphenadrine Citrate (Norflex) 60 mg 1X ONCE 06/21/20 15:00 06/21/20 15:01 DC 06/21/20 15:46 60 MG Sodium Chloride 1,000 ml @ 1,000 mls/hr 1X ONCE 06/21/20 13:00 06/21/20 13:59 DC 06/21/20 13:02 1,000 MLS/HR Allergies: Allergies: Allergies Coded Allergies Type Severity Reaction Last Updated Verified Penicillins Allergy Severe Hives 08/30/18 Yes clindamycin Allergy Severe swelling 08/30/18 Yes metoclopramide Allergy Severe angioedema 08/30/18 Yes prochlorperazine edisylate Allergy Severe Swelling 08/30/18 Yes prochlorperazine maleate Allergy Severe Swelling 08/30/18 Yes shellfish derived Allergy Severe hives and swelling 08/30/18 Yes Cephalexin Monohydrate Allergy Intermediate Hives 08/30/18 Yes Cephalosporins Allergy Intermediate Unknown 08/30/18 Yes Erythromycin Lactobionate Allergy Intermediate Hives 08/30/18 Yes Iodinated Contrast Media Allergy Intermediate Unknown 08/30/18 Yes Latex, Natural Rubber Allergy Intermediate hives 08/30/18 Yes oxcarbazepine Allergy Intermediate Unknown 08/30/18 Yes sulfamethoxazole Allergy Intermediate Hives 08/30/18 Yes trimethoprim Allergy Intermediate Hives 08/30/18 Yes Sulfa (Sulfonamide Antibiotics) Allergy Unknown Hives 08/30/18 Yes furosemide Adverse Reaction Intermediate Unknown 08/30/18 Yes hydrocodone Adverse Reaction Mild Nausea and Vomiting 08/30/18 Yes Physical Exam: PE: See Above Constitutional: Well developed, well nourished, no acute distress, non-toxic appearance, obese. [] HENT: Normocephalic, atraumatic, bilateral external ears normal, nose normal. [] Eyes: PERRLA, EOMI, conjunctiva normal, no discharge, no nystagmus. [] Neck: Normal range of motion, nontender, supple, no stridor. [] Cardiovascular:Heart rate regular rhythm Lungs & Thorax: Respirations even and unlabored, no retractions, no respiratory distress Skin: Warm, dry, no erythema, no rash. [] Extremities: No cyanosis, ROM intact, no edema. [] Neurologic: Alert and oriented X 3, normal motor, normal sensory, no focal deficits noted. [] Psychologic: Affect normal, judgement normal, mood normal. [] Current Patient Data: Vital Signs: Vital Signs Date Time Temp Pulse Resp B/P (MAP) Pulse Ox O2 Delivery O2 Flow Rate FiO2 06/21/20 16:08 86 16 133/89 (104) 98 Room Air 06/21/20 12:21 98.4 98.4 EKG: EKG: [] Heart Score: C/O Chest Pain: No Risk Scores: Score 0 - 3: 2.5% MACE over next 6 weeks - Discharge Home Score 4 - 6: 20.3% MACE over next 6 weeks - Admit for Clinical Observation Score 7 - 10: 72.7% MACE over next 6 weeks - Early Invasive Strategies Radiology/Procedures: Radiology/Procedures: [] Course & Med Decision Making: Course & Med Decision Making Pertinent Labs and Imaging studies reviewed. (See chart for details) 44-year-old female with a history of migraines who presents emergency department with complaints of migraine behind her right eye and pain in the back of her head for the last week. Patient was given a liter normal saline, 4 mg Zofran, 10 mg of Decadron, 25 mg of Benadryl she reports some relief of her pain but stated that she still had a headache patient was given 30 mg of IV Toradol. She stated the pain behind her right eye was: She continued to have pain in the back of her head or neck. Patient was given IM injection of orphenadrine and reported resolution of her discomfort. Patient declined head CT, she reported that she had Flexeril at home, encouraged her to take Flexeril when she has the pain in her neck and the back of her head this is likely tension headache. Encourage her to take Excedrin Migraine as needed for her migraine symptoms and instructed her to continue taking her allergy medications as reported. Recommend follow-up with primary care doctor in 1-2 days, return to ER symptoms worsen or fever develops. Patient verbalized an understanding of home care, medications, follow-up, and return to ED instructions and was in agreement with the plan of care. [] Dragon Disclaimer: Dragon Disclaimer: This electronic medical record was generated, in whole or in part, using a voice recognition dictation system. Departure Departure Impression: Primary Impression: Headache Disposition: 01 HOME / SELF CARE / HOMELESS Condition: STABLE Referrals: LIVAN,PHILLIP R DO (PCP) Patient Instructions: Headache and Allergies, Migraine Headache, [id number], Tension Headache, [id number] Additional Instructions: Continue taking your allergy medication as discussed. I recommend taking the flexeril at home if you have the headache in the back of your head that is cons istent with tension type headache. Otherwise take tylenol or excedrin migraine for your migraine symptoms. Go home and rest in a cool dark room, avoid exposure to electronics and screens. Follow up with your primary care doctor in 1-2 days. Return to the ER if symptoms worsen or fever develops. Attending Signature Attending Signature I have participated in the care of this patient and I have reviewed and agree with all pertinent clinical information above including history, exam, and recommendations. Problem Qualifiers Primary Impression: Headache Headache type: tension-type Headache chronicity pattern: unspecified pattern Intractability: not intractable Qualified Codes: G44.209 - Tension-type headache, unspecified, not intractable FAUSTO REHMAN APRN Jun 21, 2020 16:13 THOR PAYTON DO Jun 23, 2020 06:48
== END 2020-06-21 16:25 | disposition home or self-care (01) ==
LOC: ER 12:14
DX: G43.909 Migraine, unspecified, not intractable, without status migrainosus (principal); R09.81 Nasal congestion; R11.0 Nausea; F41.9 Anxiety disorder, unspecified; J45.909 Unspecified asthma, uncomplicated; E11.9 Type 2 diabetes mellitus without complications; E78.00 Pure hypercholesterolemia, unspecified; I10 Essential (primary) hypertension; Z87.891 Personal history of nicotine dependence; Z90.89 Acquired absence of other organs; Z90.49 Acquired absence of other specified parts of digestive tract; Z90.710 Acquired absence of both cervix and uterus; Z98.890 Other specified postprocedural states; Z88.0 Allergy status to penicillin; Z88.1 Allergy status to other antibiotic agents; Z91.013 Allergy to seafood; Z88.8 Allergy status to other drugs, medicaments and biological substances; Z91.041 Radiographic dye allergy status; Z88.2 Allergy status to sulfonamides; Z88.5 Allergy status to narcotic agent
CPT/HCPCS: 96361; 96372; 96374; 96375; 99284; J1100; J1200; J1885; J2360; J2405; J7030

== ENCOUNTER 2020-07-02 20:22 | Emergency (ER) | payer SELFPAY ==
[~2020-07-02] VITALS: Ht 149.9 cm; Wt 109.0 kg
[2020-07-02 20:37] VITALS: BP 166/74
--- NOTE | 2020-07-02 21:31 | ED.ADGEN ---
Past Medical History Past Medical History: Anxiety, Asthma, Diabetes-Type II, High Cholesterol, Hypertension, Migraines Additional Past Medical Histor: ADD Past Surgical History: Appendectomy, Cholecystectomy, Hysterectomy, Tonsillectomy, Other Additional Past Surgical Histo: (R) ankle, sinus surgery x 2 Smoking Status: Former Smoker Alcohol Use: None Drug Use: None General Adult EDM: Chief Complaint: LOWER EXTREMITY SWELLING HPI: HPI: Patient is a 44-year-old female who presents to the emergency room complaining of right upper leg pain. Patient states that she noticed some swelling around her knee a couple months ago. She saw her primary care doctor for this and they did lidocaine injections. She states she did not feel like it really helped but a couple of weeks later the pain did resolve. She did not go back to follow-up with her primary care doctor. She states about a month ago she fell on her knee and since then has been having some swelling. It went away after about 10 days but then over the last 10 days has become severe. She states that she feels pain down in her calf and her upper leg. Anytime she moves her knee she is a lot of worsening pain. She has noticed some swelling around her knee. She denies any kind of rash or skin color changes. Review of Systems: Review of Systems: Complete ROS is negative unless otherwise documented in HPI Current Medications: Current Medications Medications (Trade) Dose Ordered Sig/Larry Start Time Stop Time Status Last Admin Dose Admin Ketorolac Tromethamine (Toradol Im) 60 mg 1X ONCE 07/02/20 22:45 07/02/20 22:46 DC 07/02/20 23:05 60 MG Allergies: Allergies: Allergies Coded Allergies Type Severity Reaction Last Updated Verified Penicillins Allergy Severe Hives 08/30/18 Yes clindamycin Allergy Severe swelling 08/30/18 Yes metoclopramide Allergy Severe angioedema 08/30/18 Yes prochlorperazine edisylate Allergy Severe Swelling 08/30/18 Yes prochlorperazine maleate Allergy Severe Swelling 08/30/18 Yes shellfish derived Allergy Severe hives and swelling 08/30/18 Yes Cephalexin Monohydrate Allergy Intermediate Hives 08/30/18 Yes Cephalosporins Allergy Intermediate Unknown 08/30/18 Yes Erythromycin Lactobionate Allergy Intermediate Hives 08/30/18 Yes Iodinated Contrast Media Allergy Intermediate Unknown 08/30/18 Yes Latex, Natural Rubber Allergy Intermediate hives 08/30/18 Yes oxcarbazepine Allergy Intermediate Unknown 08/30/18 Yes sulfamethoxazole Allergy Intermediate Hives 08/30/18 Yes trimethoprim Allergy Intermediate Hives 08/30/18 Yes Sulfa (Sulfonamide Antibiotics) Allergy Unknown Hives 08/30/18 Yes furosemide Adverse Reaction Intermediate Unknown 08/30/18 Yes hydrocodone Adverse Reaction Mild Nausea and Vomiting 08/30/18 Yes Physical Exam: PE: General: Awake, alert, NAD. Well Nourished, well hydrated. Cooperative HEENT: Atraumatic, EOMI, PERRL, airway patent, moist oral mucosa Neck: Supple, trachea midline Respiratory: CTA bilaterally, normal effort, no wheezing/crackles CV: RRR, no murmur, cap refill <2 GI: Soft, nondistended, nontender, no masses MSK: Right lower extremity: Tenderness around the right knee anteriorly and posteriorly, no significant swelling, no erythema or warmth, normal range of motion Skin: Warm, dry, intact Neuro: A&O x3, speech NL, sensory and motor grossly intact, no focal deficits Psych: Normal affect, normal mood, not suicidal or homicidal Current Patient Data: Vital Signs: Vital Signs Date Time Temp Pulse Resp B/P (MAP) Pulse Ox O2 Delivery O2 Flow Rate FiO2 07/02/20 20:37 98.1 90 12 166/74 (104) 99 Room Air 98.1 EKG: EKG: [] Heart Score: C/O Chest Pain: N/A Risk Factors: Risk Factors: DM, Current or recent (<one month) smoker, HTN, HLP, family history of CAD, obesity. Risk Scores: Score 0 - 3: 2.5% MACE over next 6 weeks - Discharge Home Score 4 - 6: 20.3% MACE over next 6 weeks - Admit for Clinical Observation Score 7 - 10: 72.7% MACE over next 6 weeks - Early Invasive Strategies Radiology/Procedures: Radiology/Procedures: [] Course & Med Decision Making: Course & Med Decision Making Pertinent Labs and Imaging studies reviewed. (See chart for details) Patient is a 44-year-old female who presents to the emergency room with right lower extremity pain. Pain does include most of the knee but also radiates into the calf and upper leg. Ultrasound will be done to rule out DVT. X-ray will be done to rule out any fractures from her fall a month ago. X-ray shows a joint effusion. Patient does not appear to have a septic joint at this time. There is no warmth to the knee, no erythema, she has intact sensation and range of motion. She will follow-up outpatient. Patient's test results and vitals while in the ED were fully reviewed and discussed with the patient. Patient is stable and at this time does not need admission to the hospital. We have discussed strict return precautions and the importance of following up with their Primary Care Physician. Patient stated understanding and was given an opportunity to ask any questions. Patient is in agreement with plan. Dragon Disclaimer: Dragon Disclaimer: This electronic medical record was generated, in whole or in part, using a voice recognition dictation system. Departure Departure Impression: Primary Impression: Knee effusion, right Disposition: HOME / SELF CARE / HOMELESS Condition: STABLE Referrals: PHILLIP LICONA DO (PCP) WEN HERNANDEZ MD Patient Instructions: Knee Effusion Additional Instructions: [facility] [phone] AWILDA MCCALLUM MD Jul 02, 2020 21:31
--- NOTE | 2020-07-02 22:20 | RAD ---
EXAM: Right knee, 3 views HISTORY: Pain and swelling. COMPARISON: None. FINDINGS: Subcutaneous edema is noted throughout the visualized leg. No fractures are identified. Joint spaces are maintained. Alignment is normal. There is no joint effu alesia. Phleboliths are noted along the anterior beasley. IMPRESSION: 1. Diffuse subcutaneous edema. No fracture or joint effusion. Electronically signed by: Antonia Gramajo MD (07/02/2020 10:17 PM) [facility]
--- NOTE | 2020-07-02 22:50 | RAD ---
EXAM: Right lower extremity venous Doppler. HISTORY: Right lower extremity pain/swelling. COMPARISON: None. FINDINGS: Grayscale and Doppler analysis of the right lower extremity deep venous system was performe d with graded compression and augmentation. The common femoral, greater saphenous, superficial femora l, popliteal and calf veins were assessed. There is no evidence of deep venous thrombosis. A moderate knee effusion is noted. IMPRESSION: 1. No evidence of deep venous thrombosis. 2. Moderate knee effusion. Electronically signed by: Antonia Gramajo MD (07/02/2020 10:48 PM) [facility]
[2020-07-02] MEDS: KETOROLAC 60 MG/2 ML VIAL. IM ONE (23:05)
== END 2020-07-03 00:02 | disposition home or self-care (01) ==
LOC: ER 20:22
DX: M25.461 Effusion, right knee (principal); J45.909 Unspecified asthma, uncomplicated; E11.9 Type 2 diabetes mellitus without complications; E78.00 Pure hypercholesterolemia, unspecified; I10 Essential (primary) hypertension; G43.909 Migraine, unspecified, not intractable, without status migrainosus; Z87.891 Personal history of nicotine dependence; Z90.49 Acquired absence of other specified parts of digestive tract; Z90.710 Acquired absence of both cervix and uterus; Z90.89 Acquired absence of other organs; Z88.0 Allergy status to penicillin; Z88.1 Allergy status to other antibiotic agents; Z91.040 Latex allergy status; Z88.6 Allergy status to analgesic agent; Z91.041 Radiographic dye allergy status; Z88.5 Allergy status to narcotic agent; Z91.013 Allergy to seafood
CPT/HCPCS: 29505; 73562; 93971; 96372; 99284; J1885